=== PATIENT | female | born 1990 | race Caucasian/White ===

== ENCOUNTER 2017-03-27 17:32 | Emergency (ER) | payer MEDICAID ==
[~2017-03-27] VITALS: Ht 165.1 cm; Wt 104.3 kg
[2017-03-27 17:42] VITALS: BP 155/90
[2017-03-27] MEDS ORDERED: KETOROLAC 30 MG/1 ML IM ONE (18:00)
[2017-03-27] MEDS ORDERED: DIAZEPAM 5 MG TABLET PO ONE (18:00)
[2017-03-27] MEDS ORDERED: DIAZEPAM 5 MG TABLET ONE (18:44)
[2017-03-27] MEDS ORDERED: KETOROLAC 30 MG/1 ML ONE (18:44)
== END 2017-03-27 19:03 | disposition home or self-care (01) ==
LOC: ED 19:00
DX: S16.1XXA Strain of muscle, fascia and tendon at neck level, initial encounter (principal); G89.11 Acute pain due to trauma; G89.29 Other chronic pain; V43.52XA Car driver injured in collision with other type car in traffic accident, initial encounter; Y93.89 Activity, other specified; Y92.89 Other specified places as the place of occurrence of the external cause; Y99.8 Other external cause status
CPT/HCPCS: 72020; 72050; 72072; 96372; 99284; J1885

== ENCOUNTER 2017-06-30 17:03 | Observation (INO) | payer MEDICAID ==
[~2017-06-30] VITALS: Ht 165.1 cm; Wt 108.0 kg
[2017-06-30] MEDS ORDERED: LORazepam 1MG TABLET PO ONE (18:00)
[2017-06-30 18:05] LABS: BASOPHILS # (AUTO) 0.02 x10^3/uL (0-0.1); BASOPHILS % (AUTO) 0 % (0-1); EOSINOPHILS # (AUTO) 0.36 x10^3/uL (0-0.4); EOSINOPHILS % (AUTO) 6 % (1-7); LYMPHOCYTES # (AUTO) 0.95 x10^3/uL (1-3.4); LYMPHOCYTES % (AUTO) 15 % (22-44); MD NO; MEAN CORPUSCULAR HEMOGLOBIN 31.2 pg (27.0-34.8); MEAN CORPUSCULAR HGB CONC 34.6 g/dL (32.4-35.8); MEAN CORPUSCULAR VOLUME 90.3 fL (80-100); MEAN PLATELET VOLUME 9.3 fL (7.4-10.4); MONOCYTES # (AUTO) 0.31 x10^3/uL (0.2-0.8); MONOCYTES % (AUTO) 5 % (2-9); NEUTROPHILS # (AUTO) 4.91 x10^3/uL (1.8-6.8); NEUTROPHILS % (AUTO) 75 % (42-75); PLATELET COUNT 250 x10^3/uL (130-400); RED BLOOD COUNT 5.44 x10^6/uL (3.82-5.3); RED CELL DISTRIBUTION WIDTH 13.2 % (9.6-15.2)
[2017-06-30 18:11] LABS: ALBUMIN 3.6 g/dL (3.4-5.0); ANION GAP 7 mmol/L (5-15); CHLORIDE 107 mmol/L (98-107)
[2017-06-30 18:12] LABS: SALICYLATE LEVEL < 1.7 mg/dL (2.8-20.0)
[2017-06-30 18:17] LABS: ALANINE AMINOTRANSFERASE 33 U/L (12-78); ALKALINE PHOSPHATASE 91 U/L (45-117); BILIRUBIN,TOTAL 0.4 mg/dL (0.2-1.0); CREATININE 1.06 mg/dL (0.55-1.02); TOTAL PROTEIN 7.5 g/dL (6.4-8.2)
[2017-06-30 18:18] LABS: ACETAMINOPHEN < 2 mcg/mL (10-30)
[2017-06-30] MEDS ORDERED: LORazepam 1MG TABLET ONE (18:20)
[2017-06-30 18:45] LABS: AMPHETAMINE SCREEN, URINE Negative (Negative); BARBITURATE SCREEN, URINE Negative (Negative); BENZODIAZEPINE SCREEN, URINE Negative (Negative); CANNABINOID SCREEN, URINE Negative (Negative); COCAINE SCREEN, URINE Negative (Negative); METHADONE SCREEN, URINE Negative (Negative); OPIATE SCREEN, URINE Negative (Negative)
[2017-06-30 18:57] LABS: MICROSCOPIC INDICATED
[2017-06-30] MEDS ORDERED: PROC25SU25 PR (21:39)
[2017-06-30] MEDS ORDERED: ALBU0.63 NEB (21:39)
[2017-06-30] MEDS ORDERED: QUET100T4 PO (21:39)
[2017-06-30] MEDS ORDERED: CLON0.5T PO (21:39)
[2017-06-30] MEDS ORDERED: SERT100T5 PO (21:39)
[2017-06-30] MEDS ORDERED: TEST2.5G5 IM (21:39)
[2017-06-30] MEDS ORDERED: BISACODYL 10 MG SUPP PR PRN (23:00)
[2017-06-30] MEDS ORDERED: AMOXICILLIN 125 MG/5 ML, ORAL SUSP PO SCH (23:00)
[2017-06-30] MEDS ORDERED: ACETAMINOPHEN 325 MG TABLET PO PRN (23:00)
[2017-06-30] MEDS ORDERED: POLYETHYLENE GLYCOL 17 GM PACKET PO PRN (23:00)
[2017-06-30] MEDS ORDERED: ONDANSETRON ODT 4 MG PO PRN (23:00)
[2017-06-30 23:09] VITALS: BP 146/93
[2017-06-30] MEDS ORDERED: ALBUTEROL SULFATE 2.5 MG/3 ML NPPB PRN (23:30)
[2017-06-30] MEDS: AMOXICILLIN 500 MG CAPSULE PO SCH (23:59)
[2017-07-01 08:00] VITALS: BP 126/92
[2017-07-01] MEDS ORDERED: SENNA/DOCUSATE TABLET PO SCH (09:00)
[2017-07-01] MEDS ORDERED: SERTRALINE 100MG TABLET PO SCH (09:00)
[2017-07-01] MEDS ORDERED: QUETIAPINE 100MG TABLET PO SCH (09:00)
[2017-07-01] MEDS ORDERED: PROCHLORPERAZINE 25 MG SUPP PR SCH (09:00)
[2017-07-01] MEDS: AMOXICILLIN 500 MG CAPSULE PO SCH ×2 (09:43→15:59)
== END 2017-07-01 17:52 ==
LOC: ED 18:29 → EDIP 22:12 → 2N 23:05
PROVIDERS: ADMIT Internal Medicine; ATTEND Internal Medicine
DX: R45.850 Homicidal ideations (principal); J45.909 Unspecified asthma, uncomplicated; N39.0 Urinary tract infection, site not specified; F32.9 Major depressive disorder, single episode, unspecified; D75.1 Secondary polycythemia; Z80.9 Family history of malignant neoplasm, unspecified; Z90.49 Acquired absence of other specified parts of digestive tract
CPT/HCPCS: 36415; 80053; 80307; 80329; 81001; 84703; 85025; 94640; 99285; G0378; J7613; G0480